=== PATIENT | male | born 1955 | race Caucasian/White ===

== ENCOUNTER 2022-02-17 09:51 | Outpatient (CLI) | payer MEDICARE, OTHER | END 2022-02-17 09:52 | disposition home or self-care (01) | LOC: SCSMRI 09:51 | PROVIDERS: ATTEND Physician Assistant Medical | DX: Z12.11 Encounter for screening for malignant neoplasm of colon (principal); K74.60 Unspecified cirrhosis of liver; I85.00 Esophageal varices without bleeding; K72.90 Hepatic failure, unspecified without coma; Z95.828 Presence of other vascular implants and grafts | CPT/HCPCS: 74183 ==

== ENCOUNTER 2023-03-28 08:02 | Emergency (ER) | payer MEDICARE, OTHER ==
[2023-03-28] MEDS ORDERED: Boostrix 0.5 ML (Tdap) VIAL (>/=7 yrs of age) ONE (08:56)
[2023-03-28] MEDS ORDERED: Lidocaine 1% PF 5 ML VIAL ONE ×3 (08:58→10:34)
[2023-03-28 09:47] LABS: #Eosinphils 0.1 thou/uL (0.0-0.7); #Monocytes 0.5 thou/uL (0.11-0.59); #Neutrophils 2.1 thou/uL (1.40-6.50); %Basophils 0.6 % (0.0-1.0); %Eosinophils 2.1 % (0.0-10.0); %Lymphocytes 48.1 % (21.0-51.0); %Monocytes 8.9 % (0.0-10.0); %Neutrophils 40.1 % (42.0-75.0); Hematocrit 38.9 % (42.0-52.0); Hemoglobin 13.7 g/dL (14.0-18.0); Mean Corpuscular HGB CONC 35.2 g/dL (32.0-36.0); Mean Corpuscular Hemoglobin 32.7 pg (27.0-31.0); Mean Corpuscular Volume 92.8 fl (78.0-98.0); Mean Platelet Volume 12.6 fL (7.4-10.4); Red Blood Cell (RBC) Count 4.19 mill/uL (4.70-6.10); White Blood Cell (WBC) Count 5.2 10x3/uL (4.8-10.8)
[2023-03-28 09:49] LABS: Platelet Count 55 10x3/uL (130-400)
[2023-03-28] MEDS ORDERED: cefTRIAXone (ROCEPHIN) 1 GM VIAL ONE (09:52)
[2023-03-28 10:00] LABS: INR-International Normal Ratio 1.1; PTT 30.9 sec (22.9-36.1); Prothrombin Time 14.7 sec (12.0-14.7)
[2023-03-28] MEDS ORDERED: Bacitracin 1 PK ONE (12:11)
== END 2023-03-28 12:41 | disposition home or self-care (01) ==
LOC: ERS 08:02
DX: S60.352A Superficial foreign body of left thumb, initial encounter (principal); E11.9 Type 2 diabetes mellitus without complications; W27.0XXA Contact with workbench tool, initial encounter; Z23 Encounter for immunization
CPT/HCPCS: 11760; 12042; 36415; 85025; 85610; 85730; 90471; 90715; 96372; J0696